=== PATIENT | male | born 1985 | race Caucasian/White ===

== ENCOUNTER 2022-05-25 16:57 | Inpatient (IN) | payer OTHER ==
[2022-05-25 21:42] VITALS: BMI 22.2
[2022-05-25] MEDS ORDERED: IBUPROFEN 600 MG TABLET (FP) PO PRN (22:02)
[2022-05-25] MEDS ORDERED: ACETAMINOPHEN 325 MG TABLET (FP) PO PRN ×2 (22:02)
[2022-05-25] MEDS ORDERED: MAGNESIUM HYDROX 2400MG/30ML ORAL SUSPENSION 30 ML CUP PO PRN (22:02)
[2022-05-25] MEDS ORDERED: BENZOCAINE/MENTHOL (CHLORASEPTIC ) LOZENGE MM PRN (22:02)
[2022-05-25] MEDS ORDERED: DICYCLOMINE HCL 10 MG CAPSULE PO PRN (22:02)
[2022-05-25] MEDS ORDERED: LOPERAMIDE HCL 2 MG CAPSULE PO PRN (22:02)
[2022-05-25] MEDS ORDERED: BISMUTH SUBSALICYLATE 524 MG/30 ML PO PRN (22:02)
[2022-05-25] MEDS ORDERED: P-EPHED 60MG/TRIPROLIDI 2.5MG TABLET PO PRN (22:02)
[2022-05-25] MEDS ORDERED: PROCHLORPERAZINE MALEATE 5 MG TABLET PO PRN (22:02)
[2022-05-25] MEDS ORDERED: guaiFENesin 200 MG/10 ML 10 ML UNIT-DOSE CUPS PO PRN (22:02)
[2022-05-25] MEDS ORDERED: IBUPROFEN 400 MG TABLET (FP) PO PRN (22:02)
[2022-05-25] MEDS ORDERED: MAG HYDROX/AL HYDROX/SIMETH 30 ML UNIT-DOSE CUP PO PRN (22:02)
[2022-05-25] MEDS ORDERED: MAGNESIUM CITRATE 300 ML BOTTLE PO PRN (22:02)
[2022-05-25] MEDS ORDERED: chlordiazePOXIDE HCL 25 MG CAPSULE PO PRN (22:05)
[2022-05-25] MEDS ORDERED: chlordiazePOXIDE HCL 25 MG CAPSULE PO ONE (22:05)
[2022-05-25] MEDS: chlordiazePOXIDE HCL 25 MG CAPSULE PO SCH (22:20)
[2022-05-26] MEDS: chlordiazePOXIDE HCL 25 MG CAPSULE PO SCH ×4 (06:04→22:02)
[2022-05-26 10:37] LABS: HEMOGLOBIN 13.7 GM/dL (11.7-16.9); MCH 31.7 pg (25.7-33.7); MCHC 34.3 g/dl (32.0-35.9); MEAN CELL VOLUME 92.6 fl (80-96); MEAN PLT VOLUME 8.7 fl (7.5-11.1); PLATELET COUNT 122 10^3/uL (134-434); RBC 4.32 M/mm3 (4.00-5.60); RDW 16.4 % (11.9-15.9); WHITE BLOOD COUNT 3.9 K/mm3 (4.0-10.0)
[2022-05-26 10:48] LABS: CALCIUM 8.3 mg/dL (8.5-10.1)
[2022-05-26 10:49] LABS: ALBUMIN 3.9 g/dl (3.4-5.0); BLOOD UREA NITROGEN 12.9 mg/dL (7-18)
[2022-05-26] MEDS: PRENATAL VITAMINS W/ FOLIC ACID TABLET (FP) PO SCH (10:50)
[2022-05-26 10:51] LABS: BILIRUBIN,TOTAL 1.8 mg/dL (0.2-1); TOT PROT 7.5 g/dl (6.4-8.2)
[2022-05-26 10:52] LABS: CREATININE 0.8 mg/dL (0.55-1.3)
[2022-05-26] MEDS: PANTOPRAZOLE 40 MG TABLET PO SCH (11:50)
[2022-05-26] MEDS: FLUoxetine HCL 20 MG CAPSULE PO SCH (14:20)
[2022-05-26] MEDS: METHOCARBAMOL 500 MG TABLET PO PRN (18:06)
[2022-05-26] MEDS: MIRTAZAPINE 15 MG TABLET (FP) PO SCH (22:01)
[2022-05-26] MEDS: THIAMINE HCL 100 MG TABLET (FP) PO SCH (22:01)
[2022-05-27] MEDS: chlordiazePOXIDE HCL 25 MG CAPSULE PO SCH ×4 (05:23→22:20)
[2022-05-27] MEDS: METHOCARBAMOL 500 MG TABLET PO PRN ×3 (05:24→18:57)
[2022-05-27] MEDS: FLUoxetine HCL 20 MG CAPSULE PO SCH (10:06)
[2022-05-27] MEDS: PRENATAL VITAMINS W/ FOLIC ACID TABLET (FP) PO SCH (10:06)
[2022-05-27] MEDS: PANTOPRAZOLE 40 MG TABLET PO SCH (10:07)
[2022-05-27] MEDS: MELATONIN 5 MG TABLETS PO PRN (22:20)
[2022-05-27] MEDS: MIRTAZAPINE 15 MG TABLET (FP) PO SCH (22:20)
[2022-05-27] MEDS: THIAMINE HCL 100 MG TABLET (FP) PO SCH (22:20)
[2022-05-28] MEDS ORDERED: chlordiazePOXIDE HCL 10 MG CAPSULE PO PRN
[2022-05-28] MEDS: chlordiazePOXIDE HCL 10 MG CAPSULE PO SCH ×4 (05:44→22:23)
[2022-05-28] MEDS: METHOCARBAMOL 500 MG TABLET PO PRN ×3 (06:40→22:23)
[2022-05-28] MEDS: PANTOPRAZOLE 40 MG TABLET PO SCH (10:29)
[2022-05-28] MEDS: FLUoxetine HCL 20 MG CAPSULE PO SCH (10:29)
[2022-05-28] MEDS: PRENATAL VITAMINS W/ FOLIC ACID TABLET (FP) PO SCH (10:29)
[2022-05-28] MEDS: THIAMINE HCL 100 MG TABLET (FP) PO SCH (22:23)
[2022-05-28] MEDS: MIRTAZAPINE 15 MG TABLET (FP) PO SCH (22:23)
[2022-05-28] MEDS: MELATONIN 5 MG TABLETS PO PRN (22:24)
[2022-05-28 23:17] VITALS: RESP 18
[2022-05-29] MEDS: METHOCARBAMOL 500 MG TABLET PO PRN ×3 (05:44→18:37)
[2022-05-29] MEDS: chlordiazePOXIDE HCL 10 MG CAPSULE PO SCH ×2 (05:45→17:15)
[2022-05-29] MEDS: PRENATAL VITAMINS W/ FOLIC ACID TABLET (FP) PO SCH (10:23)
[2022-05-29] MEDS: FLUoxetine HCL 20 MG CAPSULE PO SCH (10:23)
[2022-05-29] MEDS: PANTOPRAZOLE 40 MG TABLET PO SCH (10:23)
[2022-05-29] MEDS: MIRTAZAPINE 15 MG TABLET (FP) PO SCH (22:15)
[2022-05-29] MEDS: THIAMINE HCL 100 MG TABLET (FP) PO SCH (22:15)
[2022-05-29] MEDS: MELATONIN 5 MG TABLETS PO PRN (22:15)
[2022-05-30] MEDS ORDERED: chlordiazePOXIDE HCL 10 MG CAPSULE PO ONE (05:00)
[2022-05-30 05:50] VITALS: BP 122/75; PULSE 93; TEMP 97.1
== END 2022-05-30 08:48 | disposition home or self-care (01) | DRG 775 ==
LOC: YASAS 16:57 → Y6N 22:43
PROVIDERS: ADMIT Allergy & Immunology; ATTEND Family Medicine
PROC: HZ2ZZZZ Detoxification Services for Substance Abuse Treatment (ICD-10-PCS; principal; 2022-05-25)
DX: F10.230 Alcohol dependence with withdrawal, uncomplicated (principal); F10.220 Alcohol dependence with intoxication, uncomplicated; F41.1 Generalized anxiety disorder; K21.9 Gastro-esophageal reflux disease without esophagitis; R00.0 Tachycardia, unspecified; Z88.8 Allergy status to other drugs, medicaments and biological substances; Z62.810 Personal history of physical and sexual abuse in childhood
CPT/HCPCS: 36415; 80053; 85027; 86780; 87811; C9803-CS; U0003; U0005